=== PATIENT | female | born 1985 | race Caucasian/White ===

== ENCOUNTER → 2017-11-10 | Outpatient (CLI) | payer OTHER | LOC: M LRY 17:32 | DX: S89.92XA Unspecified injury of left lower leg, initial encounter (principal); X58.XXXA Exposure to other specified factors, initial encounter; Y92.89 Other specified places as the place of occurrence of the external cause | CPT/HCPCS: 73030 ==

== ENCOUNTER → 2018-06-07 | Outpatient (REF) | payer OTHER | LOC: M SFHCLERA 18:31 | DX: J02.9 Acute pharyngitis, unspecified (principal) ==

== ENCOUNTER → 2018-08-23 | Outpatient (REF) | payer OTHER | LOC: M SFHCLERA 19:00 | DX: R30.0 Dysuria (principal) ==

== ENCOUNTER → 2019-08-19 | Outpatient (REF) | payer OTHER | LOC: M SFHCLERA 13:32 | PROVIDERS: ATTEND Nurse Practitioner Family | DX: J02.9 Acute pharyngitis, unspecified (principal) ==

== ENCOUNTER 2021-05-23 09:36 | Emergency (ER) | payer OTHER ==
[~2021-05-23] VITALS: Ht 175.3 cm; Wt 118.1 kg
[2021-05-23] MEDS ORDERED: METF10004 (09:56)
[2021-05-23] MEDS ORDERED: JARD1TAB (09:56)
--- NOTE | 2021-05-23 11:16 | REP ---
INDICATION: tingling. COMPARISON: None. TECHNIQUE: Helical scanning is acquired. 5 mm axial images were reformatted. Coronal MPR images were generated. FINDINGS: Preliminary digital community health advisor radiograph demonstrates previous craniotomies. Bone window settings show craniotomy defect with calvarial flap fixation hardware in the right frontal and parietal region. No bony destructive lesion is appreciated. Visualized paranasal sinuses are clear. No intraorbital abnormality is seen. On soft tissue window settings, there are extensive areas of encephalomalacia in the right posterior frontal lobe underlying the craniotomy. These findings should be correlated with history. There is some no evidence of intracranial hemorrhage. No extra-axial fluid collection is seen. No mass or midline shift is observed. No acute infarction is appreciated. IMPRESSION: Prior large right frontal and frontal parietal craniotomy. 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 No acute intracranial abnormality. <Electronically signed by Juan Antonio Glasgow > 05/23/21 0064
[2021-05-23 14:02] VITALS: BP 144/91
== END 2021-05-23 14:04 | disposition home or self-care (01) ==
LOC: M ED 09:36
DX: R20.2 Paresthesia of skin (principal); R25.3 Fasciculation; E11.9 Type 2 diabetes mellitus without complications; G43.909 Migraine, unspecified, not intractable, without status migrainosus; Z91.018 Allergy to other foods; Z79.84 Long term (current) use of oral hypoglycemic drugs

== ENCOUNTER → 2022-06-30 | Outpatient (REF) | payer OTHER ==
[~2022-06-30] MED LIST: JARD1TAB; METF10004
[2022-07-01 19:44] LABS: MALB URINE SIEMENS 49.4 MG/L; MAU/CREAT RATIO 24.4 MCG/MG (0.0-30.0)
== END ==
LOC: M LAB REF 17:03
PROVIDERS: ATTEND Nurse Practitioner Family
DX: E11.65 Type 2 diabetes mellitus with hyperglycemia (principal)

== ENCOUNTER 2022-08-10 11:46 | Emergency (ER) | payer OTHER ==
[~2022-08-10] VITALS: Ht 175.3 cm; Wt 125.0 kg
[2022-08-10 12:34] VITALS: BP 150/80
[2022-08-10 12:51] LABS: BASO % 0.3 % (0.0-1.0); EOS # 0.1 10^3/uL (0.0-0.5); EOS % 0.4 % (0.0-3.0); HEMATOCRIT 39.6 % (36.0-47.0); HEMOGLOBIN 12.5 g/dl (12.0-15.5); LYMPH # 3.1 10^3/uL (1.5-5.0); LYMPH % 19.9 % (24.0-44.0); MEAN CORPUSCULAR HEMOGLOBIN 27.3 pg (27.0-33.0); MEAN CORPUSCULAR HGB CONC 31.6 g/dl (32.0-36.5); MEAN CORPUSCULAR VOLUME 86.5 fl (80.0-96.0); MONO % 6.6 % (2.0-8.0); NEUTROPHILS # 11.3 10^3/uL (1.5-8.5); NEUTROPHILS % 72.4 % (36.0-66.0); PLATELET COUNT, AUTOMATED 260 10^3/uL (150-450); RED BLOOD COUNT 4.58 10^6/uL (4.00-5.40); WHITE BLOOD COUNT 15.6 10^3/uL (4.0-10.0)
[2022-08-10 13:04] LABS: CHLORIDE LEVEL 102 MMOL/L (98-107); INR 1.07; PARTIAL THROMBOPLASTIN TIME 24.3 SECONDS (24.8-34.2); PROTHROMBIN TIME 14.1 SECONDS (12.5-14.5); SODIUM LEVEL 139 MMOL/L (136-145)
[2022-08-10 13:05] LABS: CARBON DIOXIDE LEVEL 25 MMOL/L (20-31)
[2022-08-10 13:10] LABS: BLOOD UREA NITROGEN 12 MG/DL (9-23); CALCIUM LEVEL 8.9 MG/DL (8.5-10.1); GLUCOSE, FASTING 102 MG/DL (60-100)
[2022-08-10 13:11] LABS: CK-MB VALUE MASS 1.9 NG/ML (<3.6)
[2022-08-10 13:12] LABS: CREATININE FOR GFR 0.57 MG/DL (0.55-1.30); GLOMERULAR FILTRATION RATE > 60.0 (>60)
[2022-08-10 13:13] LABS: CPK CREATINE PHOSPHOKINASE 97 U/L (34-145); MB/CK RELATIVE INDEX 1.95 (< OR =4); POTASSIUM SERUM 3.8 MMOL/L (3.5-5.1)
[2022-08-10 13:27] LABS: RSV AMPLIFICATION NEGATIVE (NEGATIVE)
[2022-08-10] MEDS ORDERED: PROHANCE 279.3MG/ML 15ML VIAL As Ordered ONE (14:16)
[2022-08-10] MEDS ORDERED: PROHANCE 279.3MG/ML 5ML VIAL As Ordered ONE (14:16)
[2022-08-10 18:15] VITALS: BP 129/62
== END 2022-08-10 18:32 | disposition home or self-care (01) ==
LOC: M ED 11:46
DX: R20.2 Paresthesia of skin (principal); E11.9 Type 2 diabetes mellitus without complications; G43.909 Migraine, unspecified, not intractable, without status migrainosus; Z79.4 Long term (current) use of insulin; Z91.013 Allergy to seafood; Z79.899 Other long term (current) drug therapy
CPT/HCPCS: 36415; 70450; 70553; 71045; 80047; 80048; 82550; 82553; 84484; 84702; 85025; 85610; 85730; 87631; 93005; 93041; 94760; 99285; A9576

== ENCOUNTER → 2022-10-26 | Outpatient (CLI) | payer OTHER ==
[~2022-10-26] MED LIST changes: +ISOVUE-370 76% 100ML VIAL As Ordered ONE
== END ==
LOC: M RAD 15:15
PROVIDERS: ATTEND Psychiatry & Neurology Neurology
DX: C71.9 Malignant neoplasm of brain, unspecified (principal); R53.1 Weakness

== ENCOUNTER → 2022-12-15 | Outpatient (REF) | payer OTHER ==
[~2022-12-15] MED LIST changes: -ISOVUE-370 76% 100ML VIAL As Ordered ONE
== END ==
LOC: M LAB REF 18:02
PROVIDERS: ATTEND Internal Medicine Endocrinology, Diabetes & Metabolism
DX: E04.1 Nontoxic single thyroid nodule (principal)

== ENCOUNTER → 2023-05-20 | Outpatient (CLI) | payer OTHER ==
[2023-05-20 11:54] LABS: BASO % 0.5 % (0.0-1.0); EOS # 0.2 10^3/uL (0.0-0.5); EOS % 1.8 % (0.0-3.0); HEMATOCRIT 39.2 % (36.0-47.0); HEMOGLOBIN 12.4 g/dl (12.0-15.5); LYMPH # 2.1 10^3/uL (1.5-5.0); LYMPH % 24.9 % (24.0-44.0); MEAN CORPUSCULAR HEMOGLOBIN 27.4 pg (27.0-33.0); MEAN CORPUSCULAR HGB CONC 31.6 g/dl (32.0-36.5); MEAN CORPUSCULAR VOLUME 86.5 fl (80.0-96.0); MONO # 0.7 10^3/uL (0.0-0.8); MONO % 8.2 % (2.0-8.0); NEUTROPHILS # 5.5 10^3/uL (1.5-8.5); NEUTROPHILS % 64.4 % (36.0-66.0); PLATELET COUNT, AUTOMATED 245 10^3/uL (150-450); RED BLOOD COUNT 4.53 10^6/uL (4.00-5.40); WHITE BLOOD COUNT 8.6 10^3/uL (4.0-10.0)
[2023-05-20 12:12] LABS: ALBUMIN 3.5 G/DL (3.2-5.2); ALKALINE PHOSPHATASE 110 U/L (46-116); ALT/SGPT 56 U/L (7.0-40); AST/SGOT 31 U/L (<34); BILIRUBIN,TOTAL 0.3 MG/DL (0.3-1.2); BLOOD UREA NITROGEN 10 MG/DL (9-23); CALCIUM LEVEL 9.3 MG/DL (8.5-10.1); CARBON DIOXIDE LEVEL 29 MMOL/L (20-31); CHLORIDE LEVEL 106 MMOL/L (98-107); CREATININE FOR GFR 0.46 MG/DL (0.55-1.30); GLOMERULAR FILTRATION RATE > 60.0 (>60); GLUCOSE, FASTING 140 MG/DL (60-100); POTASSIUM SERUM 4.4 MMOL/L (3.5-5.1); SODIUM LEVEL 141 MMOL/L (136-145)
== END ==
LOC: M LAB 11:22
PROVIDERS: ATTEND Internal Medicine Hematology & Oncology
DX: C71.9 Malignant neoplasm of brain, unspecified (principal)